=== PATIENT | female | born 1985 ===

== ENCOUNTER 2025-03-27 14:07 | Outpatient (CLI) | payer OTHER | END 2025-03-27 14:08 | disposition home or self-care (01) | LOC: PRENATAL 14:07 | PROVIDERS: ATTEND Obstetrics & Gynecology Maternal & Fetal Medicine | DX: O44.00 Complete placenta previa NOS or without hemorrhage, unspecified trimester (principal); O34.40 Maternal care for other abnormalities of cervix, unspecified trimester; Z3A.20 20 weeks gestation of pregnancy ==

== ENCOUNTER 2025-05-28 16:07 | Outpatient (CLI) | payer OTHER ==
[2025-06-01] MEDS ORDERED: INSULIN SYRING1 EA29 SUBCUTANEO (15:36)
[2025-06-01] MEDS ORDERED: HUMULIN N100 UNIT/2 SUBCUTANEO (15:36)
[2025-06-02] MEDS ORDERED: INSULIN SYRING1 EA29 SUBCUTANEO (14:16)
[2025-06-02] MEDS ORDERED: HUMULIN N100 UNIT/2 SUBCUTANEO (14:16)
[2025-06-22] MEDS ORDERED: HUMULIN R100 UNIT/1 SUBCUTANEO (14:46)
== END 2025-05-28 16:08 | disposition home or self-care (01) ==
LOC: PRENATAL 16:07
PROVIDERS: ATTEND Obstetrics & Gynecology Maternal & Fetal Medicine
DX: O26.849 Uterine size-date discrepancy, unspecified trimester (principal); O36.8130 Decreased fetal movements, third trimester, not applicable or unspecified; O34.40 Maternal care for other abnormalities of cervix, unspecified trimester; O44.00 Complete placenta previa NOS or without hemorrhage, unspecified trimester; O24.419 Gestational diabetes mellitus in pregnancy, unspecified control; Z3A.29 29 weeks gestation of pregnancy